=== PATIENT | female | born 1990 | race Hispanic/Latino ===

== ENCOUNTER → 2019-03-25 09:57 | Outpatient (CLI) | payer OTHER, MEDICAID, SELFPAY ==
--- NOTE | 2019-03-25 09:58 | DI.US.S_ITS ---
PROCEDURE: US OB >= 14 WEEKS FETUS INDICATIONS: ANATOMIC SURVEY OUTSIDE/PRIOR DATING DATA: Last menstrual period (LMP): Not available. LMP-based estimated date of delivery (MADHU): Not available. First dating scan (date and location): 03/17/19, by Dr. Arriaga Estimated date of delivery (MADHU) from first dating scan: Centered on 07/19/19. TECHNIQUE: Real-time scanning was performed of the fetus, with image documentation and biometric measurements. Endovaginal scanning: None needed for this study COMPARISON: [facility], , OB >= 14 WEEKS FETUS, 03/17/2019, 14:13. FINDINGS: General: A single living intrauterine gestation is present. Presentation: Transverse head to maternal left Placenta: Placental position is anterior, without previa. Amniotic fluid index: 6.0 cm, normal range is 5-24 cm. heart rate: 147 beats per minute. Maternal cervical canal: 4.7 cm long. Normal lower limit is 2.5 cm. biometrics: Biparietal diameter: 5.6 cm, 23 weeks 1 day Head circumference: 22.1 cm, 24 weeks 1 day Abdominal circumference: 20.0 cm, 24 weeks 4 days Femur length: 4.3 cm, 24 weeks 0 days Estimated gestational age from initial scan: 23 weeks 3 days. Composite gestational age from present scan: 24 weeks 0 days Estimated weight and percentile: Measurement variability for biometric dating: +/- 7 days from 14 weeks to 15 weeks 6 days gestation, +/- 10 days from 16 weeks to 21 weeks 6 days gestation, +/- 2 weeks from 22 weeks to 27 weeks 6 days gestation, +/- 3 weeks for 28 weeks gestation or later. weight reference: 4500 g or EFW >90/95% is considered macrosomia or large for gestational age. EFW <10% is small for gestational age. EFW 5% or less is considered intra-uterine growth restriction. Anatomic survey: Neuro: Ventricles are non-dilated at less than 10 mm. Cisterna magna is normal at 3-11 mm. Cerebellum is normal in size and morphology. Neck region is not fully visualized Nuchal skin fold: Not applicable Face: Nose and lips, facial profile are poorly visualized due to positioning. Spine: No evidence for spina bifida. Heart: 4-chambered heart is present, with poorly visualized ventricular outflow tracts due to positioning. Diaphragm: Diaphragm is intact. Stomach: Left-sided stomach is present. Kidneys: No hydronephrosis. Normal is less than 5 mm in 2nd trimester, less than 7 mm in 3rd trimester. Cord: 3-vessel cord has orthotopic insertion. Bladder: Normal in size. Extremities: All to upper extremities identified but the lower extremities could not be well-seen due to positioning IMPRESSION: Appropriate interval growth, no anomalies seen. A delivery date is centered on 07/19/19 based on the first OB ultrasound from Dr. Arriaga performed 03/17/19. Please note that the facial area and neck region are relatively poorly seen as are the diaphragm and cardiac outflow tracts and the lower extremities bilaterally due to positioning. A followup limited OB ultrasound in approximately 10 days could be utilized to attempt to complete anatomic survey. Dictated by: Remy Moreira M.D. on 03/25/2019 at 11:27 Approved by: Remy Moreira M.D. on 03/25/2019 at 11:43
== END ==
PROVIDERS: PCP Nurse Practitioner Gerontology
DX: Z34.82 Encounter for supervision of other normal pregnancy, second trimester (principal); Z3A.24 24 weeks gestation of pregnancy
CPT/HCPCS: 76811

== ENCOUNTER → 2019-04-10 10:06 | Outpatient (CLI) | payer OTHER, MEDICAID, SELFPAY ==
[2019-04-10 13:45] LABS: Urine N gonorrhoeae NOT DETECTED
[2019-04-10 14:55] LABS: Urine Chlamydia NOT DETECTED
== END ==
PROVIDERS: PCP Nurse Practitioner Gerontology
DX: Z34.82 Encounter for supervision of other normal pregnancy, second trimester (principal)
CPT/HCPCS: 87491; 87591

== ENCOUNTER → 2019-04-15 13:08 | Outpatient (CLI) | payer OTHER, MEDICAID, SELFPAY ==
--- NOTE | 2019-04-15 13:09 | DI.US.S_ITS ---
PROCEDURE: US OB FOLLOW UP INDICATIONS: LIMITED OB US TO FOLLOW UP ANATOMY SURVEY OUTSIDE/PRIOR DATING DATA: Last menstrual period (LMP): Unknown. LMP-based estimated date of delivery (MADHU): N./A.. First dating scan (date and location): 03/17/19. Estimated date of delivery (MADHU) from first dating scan: 07/19/19. TECHNIQUE: Real-time scanning was performed of the fetus, with image documentation. Endovaginal scanning: No COMPARISON: [facility], , OB >= 14 WEEKS FETUS, 04/10/2019, 10:21. FINDINGS: A single living intrauterine gestation is present. Presentation: Transverse with head to maternal left.. Placenta: Placental position is anterior, without previa. Amniotic fluid index: 19.2 cm, normal range is 5-24 cm. heart rate: 155 beats per minute. Maternal cervical canal: 5.4 cm long. Estimated gestational age from initial scan: 26 weeks 3 days Lower extremities, diaphragm and cardiac outflow tracts are normal. Posterior fossa and the neck again not well-seen as well as the facial profile and nasal bone.. IMPRESSION: 1. Single living IUP redemonstrated. 2. Normal appearance the lower extremities, diaphragm and cardiac outflow tracts. 3. Posterior fossa, neck as well as the facial profile and nasal bone again not well-visualized secondary to positioning and bodily habitus. Dictated by: Deion Sierra [facility] Interpreted: Krystian Wilde MD on 04/15/2019 at 15:15 Approved by: Krystian Wilde M.D. on 04/15/2019 at 17:21
== END ==
PROVIDERS: PCP Nurse Practitioner Gerontology
DX: Z04.89 Encounter for examination and observation for other specified reasons (principal); Z3A.26 26 weeks gestation of pregnancy
CPT/HCPCS: 76816

== ENCOUNTER → 2019-05-01 12:06 | Outpatient (CLI) | payer OTHER, MEDICAID, SELFPAY | PROVIDERS: PCP Nurse Practitioner Gerontology | DX: Z34.92 Encounter for supervision of normal pregnancy, unspecified, second trimester (principal) | CPT/HCPCS: 36415; 86850; 86900; 86901 ==

== ENCOUNTER 2019-07-07 02:53 | Inpatient (IN) | payer OTHER, MEDICAID, SELFPAY ==
[2019-07-07] VITALS (13 sets, daily range): BP systolic 80–124; BP diastolic 43–74; PULSE 71–80; RESP 11–18; TEMP 36.3–37.2; O2SAT 96–100
--- NOTE | 2019-07-07 | PATH_ITS ---
[facility] Accession Number: [id number] . 01 Material submitted: . PART A: fallopian tube - RIGHT FALLOPIAN TUBE SEGMENT PART B: fallopian tube - LEFT FALLOPIAN TUBE SEGMENT . 01 Clinical history: . EVALUATION OF LABOR . 02 Diagnosis: A. Right Fallopian Tube Segment: One complete circumferential segment of fallopian tube. No evidence of neoplasia. . B. Left Fallopian Tube Segment: One complete circumferential segment of fallopian tube. No evidence of neoplasia. I07/08/2019 . 02 Electronically signed: . Cate Strong MD, Pathologist NPI- [id number] . 01 Gross description: . Part A: RIGHT FALLOPIAN TUBE SEGMENT: Received in formalin is 1 fragment of arshad soft tissue measuring 0.8 x 0.6 x 0.5 cm. Tissue is inked. Specimen is sectioned and submitted in its entirety in 1 cassette. Part B: LEFT FALLOPIAN TUBE SEGMENT: Received in formalin is 1 fragment of arshad soft tissue measuring 0.7 x 0.5 x 0.4 cm. Tissue is inked,. Specimen is sectioned and submitted in its entirety in 1 cassette. /DM /[facility] . 02 Pathologist provided ICD-10: Z30.2 . 02 CPT . 441653, [id number] Performed at: 01 [facility] [address] [facility] [place], [place], [place] [id number] MD Cali Camejo MD Phone: [phone] Performed at: 02 [facility] [address] [place], [place] [id number] MD Cate Strong MD Phone: [phone]
[2019-07-07] MEDS: LACTATED RINGERS 1,000 ML 999 ML IV (03:30)
--- NOTE | 2019-07-07 03:38 | PM.OBHP.1 ---
OB HPI Date/Time Date of admission: 07/07/19 Date Patient Seen: 07/07/19 Time Patient Seen: 03:39 History of Present Condition Chief complaint: evaluation of labor : 2 Para: 1 Estimated Date of Delivery: 07/16/19 Estimated Gestational Age (weeks): 39 Narrative: Marisabel Edwards is a 29 year old female with a history of a prior section. She presents in active labor with rupture of membranes. Indications Operative indications ( section): previous uterine surgery History of Present care: good care, number of visits (13) and pounds weight gain (9 lb) Dating criteria: LMP confirmed by 1st trimester US Ultrasounds: normal 1st trimester US and normal mid trimester US Obstetrical complications: gestational diabetes Medical complications: none Narrative: Patient with uneventful except for gestational diabetes diet controlled and with metformin. Preadmission Labs Blood type: A (+) positive -: Antibody screen: negative, Cystic fibrosis screen: unknown, GBS status: negative, HBsAG: negative, HIV: negative, HSV 1: negative, HSV 2: negative and RPR/VDLR: negative -: Chlamydia screen: detected (Negative) and Gonorrhea screen: detected (Negative) -: Rubella: not immune and Varicella: unknown HCT: 36.9 HCAB: negative PAP: Normal 1 hr GTT: 186 3 hr GTT: 1 hr (186) and 2 hr (160) Fasting blood glucose: 97 Evaluation Evaluation Baseline heart rate: 140 Variability: Moderate (11-25) monitor accelerations: Present monitor decelerations: Absent Contraction Frequency (minutes): 3 Category of Tracing: I Cervical dilation (cm): 3 Cervical effacement (%): 90 station: -3 Non-invasive Membranes Rupture Test: positive [facility] Medical History Hypertension (Chronic ~2011) Surgical History History of epidural anesthesia (Resolved) History of surgery (Resolved ~09/12/17) Family History (Updated 02/12/19 @ 20:32 by Rachel Falcon) Mother Diabetes mellitus Brother Hypertension Grandfather Diabetes mellitus Social History Smoking Status: Never smoker Family History Mother Diabetes mellitus Brother Hypertension Grandfather Diabetes mellitus Social History Smoking Status: Never smoker Meds Home Medications Medication Instructions Recorded Confirmed Type 1 tab PO DAILY 02/11/19 07/07/19 History vitamin,calcium,sauoooji-qmfp-utztd acid tablet metformin 500 mg tablet 500 mg PO BID #120 tab 05/29/19 07/07/19 Rx Allergies Allergy/AdvReac Type Severity Reaction Status Date / Time No Known Drug Allergies Allergy Verified 07/07/19 03:17 Review of Systems Review of Systems All systems reviewed & are unremarkable except as noted in HPI and below Exam Vital Signs (past 8 hours): - 07/07/19 03:16 Blood Pressure 124/74 Const General: cooperative and healthy appearing [facility] Head: normal to inspection Ears: hearing grossly normal bilaterally Nose: external nose normal Face and sinus: normal facial exam Mouth: oral mucosae normal, lip normal, tongue normal and moist mucous membranes Teeth and gingiva: dentition normal Throat: posterior oropharynx normal Eyes General: appearance normal, both eyes and all related structures Neck Neck: normal visual inspection and full ROM Chest Chest: normal inspection of the chest and normal palpation of entire chest wall Breast inspection: normal inspection of the breasts and normal inspection of the axillae Breast Palpation: normal palpation of the breasts and normal palpation of the axillae Resp Effort & Inspection: normal respiratory effort Auscultation: clear to auscultation bilaterally Cardio Palpation: normal PMI Rate: regular rate Rhythm: regular rhythm Heart Sounds: S1 normal and S2 normal GI Inspection: normal to inspection Palpation: soft and no hepatosplenomegaly Percussion: normal to percussion Auscultation: normal bowel sounds OB/External & Speculum: external exam normal Manual OB Exam: dilated 3, effaced fully and station high Uterus Location (Fundal Height): 40 Presentation: vertex Estimated Weight (lbs): 8 Amniotic Fluid: clear Back/Spine/Pelvis Thoracic/Lumbar Spine: thoracic and lumbar spine normal to inspection Skin General: no rashes or lesions noted Neuro General: alert, oriented x3, tone normal and moves all extremities Cognition: normal cognition Speech: speech normal Gait: normal gait Motor: muscle tone normal throughout Sensory Exam: no sensory deficits noted Extrem General: normal to inspection and normal exam except as noted Psych Appearance: grossly normal and well kempt Mental Status: mental status grossly normal Speech and Movement: speech and movement normal Objective Labs Result Diagrams: 07/07/19 03:27 Assessment and Plan Assessment and Plan Assessment and Plan narrative: Term intrauterine History of prior section Active labor with rupture membranes Planned repeat section
[2019-07-07 03:41] LABS: Add Manual Diff / Slide Review NO; Basophils Absolute Auto 100 /uL (0-100); Basophils Percent Auto 0.8 % (0-2); Eosinophils Absolute Auto 0 /uL (0-450); Eosinophils Percent Auto 0.4 % (2-4); Hematocrit 36.4 % (36-46); Hemoglobin 12.1 g/dL (12.0-16.0); Lymphocytes Absolute Auto 2800 /uL (1100-4500); Lymphocytes Percent Auto 22.9 % (25-40); Mean Corpuscular HGB Conc 33.1 % (30-36); Mean Corpuscular Hemoglobin 25.8 PG (26-34); Monocytes Absolute Auto 700 /uL (0-900); Monocytes Percent Auto 6.1 % (3-14); Neutrophils Absolute Auto 8600 /uL (1500-7000); Neutrophils Percent Auto 69.8 % (50-75); Platelet Count 227 X10^3/uL (150-400); Red Blood Cell Count 4.68 X10^6/uL (4.0-5.2); Red Cell Distribution Width 15.6 % (11.6-14.8); White Blood Cell Count 12.3 X10^3/uL (4.5-11.0)
--- NOTE | 2019-07-07 03:48 | P.HPOB_ITS ---
OB HPI Date/Time Date of admission: 07/07/19 Date Patient Seen: 07/07/19 Time Patient Seen: 03:39 History of Present Condition Chief complaint: evaluation of labor : 2 Para: 1 Estimated Date of Delivery: 07/16/19 Estimated Gestational Age (weeks): 39 Narrative: Marisabel Edwards is a 29 year old female with a history of a prior section. She presents in active labor with rupture of membranes. Indications Operative indications ( section): previous uterine surgery History of Present care: good care, number of visits (13) and pounds weight gain (9 lb) Dating criteria: LMP confirmed by 1st trimester US Ultrasounds: normal 1st trimester US and normal mid trimester US Obstetrical complications: gestational diabetes Medical complications: none Narrative: Patient with uneventful except for gestational diabetes diet controlled and with metformin. Preadmission Labs Blood type: A (+) positive -: Antibody screen: negative, Cystic fibrosis screen: unknown, GBS status: negative, HBsAG: negative, HIV: negative, HSV 1: negative, HSV 2: negative and RPR/VDLR: negative -: Chlamydia screen: detected (Negative) and Gonorrhea screen: detected (Negative) -: Rubella: not immune and Varicella: unknown HCT: 36.9 HCAB: negative PAP: Normal 1 hr GTT: 186 3 hr GTT: 1 hr (186) and 2 hr (160) Fasting blood glucose: 97 Evaluation Evaluation Baseline heart rate: 140 Variability: Moderate (11-25) monitor accelerations: Present monitor decelerations: Absent Contraction Frequency (minutes): 3 Category of Tracing: I Cervical dilation (cm): 3 Cervical effacement (%): 90 station: -3 Non-invasive Membranes Rupture Test: positive [facility] Medical History Hypertension (Chronic ~2011) Surgical History History of epidural anesthesia (Resolved) History of surgery (Resolved ~09/12/17) Family History (Updated 02/12/19 @ 20:32 by Rachel Falcon) Mother Diabetes mellitus Brother Hypertension Grandfather Diabetes mellitus Social History Smoking Status: Never smoker Family History Mother Diabetes mellitus Brother Hypertension Grandfather Diabetes mellitus Social History Smoking Status: Never smoker Meds Home Medications Medication Instructions Recorded Confirmed Type 1 tab PO DAILY 02/11/19 07/07/19 History vitamin,calcium,xgvtcycs-ldix-zhprj acid tablet metformin 500 mg tablet 500 mg PO BID #120 tab 05/29/19 07/07/19 Rx Allergies Allergy/AdvReac Type Severity Reaction Status Date / Time No Known Drug Allergies Allergy Verified 07/07/19 03:17 Review of Systems Review of Systems All systems reviewed & are unremarkable except as noted in HPI and below Exam Vital Signs (past 8 hours): - 07/07/19 03:16 Blood Pressure 124/74 Const General: cooperative and healthy appearing [facility] Head: normal to inspection Ears: hearing grossly normal bilaterally Nose: external nose normal Face and sinus: normal facial exam Mouth: oral mucosae normal, lip normal, tongue normal and moist mucous membranes Teeth and gingiva: dentition normal Throat: posterior oropharynx normal Eyes General: appearance normal, both eyes and all related structures Neck Neck: normal visual inspection and full ROM Chest Chest: normal inspection of the chest and normal palpation of entire chest wall Breast inspection: normal inspection of the breasts and normal inspection of the axillae Breast Palpation: normal palpation of the breasts and normal palpation of the axillae Resp Effort & Inspection: normal respiratory effort Auscultation: clear to auscultation bilaterally Cardio Palpation: normal PMI Rate: regular rate Rhythm: regular rhythm Heart Sounds: S1 normal and S2 normal GI Inspection: normal to inspection Palpation: soft and no hepatosplenomegaly Percussion: normal to percussion Auscultation: normal bowel sounds OB/External & Speculum: external exam normal Manual OB Exam: dilated 3, effaced fully and station high Uterus Location (Fundal Height): 40 Presentation: vertex Estimated Weight (lbs): 8 Amniotic Fluid: clear Back/Spine/Pelvis Thoracic/Lumbar Spine: thoracic and lumbar spine normal to inspection Skin General: no rashes or lesions noted Neuro General: alert, oriented x3, tone normal and moves all extremities Cognition: normal cognition Speech: speech normal Gait: normal gait Motor: muscle tone normal throughout Sensory Exam: no sensory deficits noted Extrem General: normal to inspection and normal exam except as noted Psych Appearance: grossly normal and well kempt Mental Status: mental status grossly normal Speech and Movement: speech and movement normal Objective Labs Result Diagrams: 07/07/19 03:27 Assessment and Plan Assessment and Plan Assessment and Plan narrative: Term intrauterine History of prior section Active labor with rupture membranes Planned repeat section
[2019-07-07] MEDS: CEFOTETAN 2 GM/50 ML PIGGYBACK IV (04:11)
--- NOTE | 2019-07-07 04:29 | SUR.OPER ---
Supine on Padded OR bed, head on pillow, safety belt at thigh, arms secured on padded arm boards at <90 degrees abduction. Bump under right buttock. Legs uncrossed with pillow under knees, gel pad to heels, tape over blanket to lower legs.
--- NOTE | 2019-07-07 05:01 | SUR.OPER ---
FHT preoperative 132. Live male at 0431. APGARS 9/9
--- NOTE | 2019-07-07 05:24 | P.OP_ITS ---
Operative Date/Time/Diagnoses Date of procedure: 07/07/19 Time of procedure: 05:19 Pre-op diagnosis: Term intrauterine History of prior section Multiparity desires sterilization Active labor Post-op diagnosis: same Procedure: Procedures Operation Date: 07/07/19 03:55 Actual Procedures Side Surgeon p Section, bilateral tubal ligation Jama Arriaga MD Indications: Term intrauterine History prior section Multiparity desires sterilization Active labor with rupture membranes Surgeon: Jama Arriaga Anesthesia Type: Spinal Operative Notes Findings: Normal uterus tubes and ovaries Live-born male Closure Type: primary Specimen(s): portion of left tube and portion of right tube Applied: catheter Estimated blood loss (mL): 500 Blood products transfused: none Procedure in detail: The patient was placed supine upon the operating table and anesthetized. She was then draped and prepared in usual fashion. The old incision was marked with a pen. A transverse incision was made through the skin and the subcutaneous tissue incised to the fascia. The fascia was incised with a sharp knife transversely in each direction. The median raphe was incised in the midline. This was then widened by blunt finger dissection. Peritoneum was picked up and incised. This was widened with blunt finger dissection. The peritoneum over the lower uterine segments picked up and incised the bladder taken down. The lower in segment was very thin. Transverse incision was made. This was widened with blunt finger dissection. A live-born male infant with scores of eight at 1 minute nine at 5 minute was then delivered without difficulty. The respiratory therapist and nurse pronounced the infant normal in good condition. Cord blood was obtained. Cord had three vessels. Placenta was removed without difficulty. All membranes were massaged from the endometrial cavity. Lateral edges of the uterine incision were grasped with [place] clamps. The incision was closed in an imbricating fashion using two layer technique with 1. Chromic suture. Bleeding points were seen. Visceral peritoneum was closed with two interrupted two 0 chromic sutures. Attention was turned to the fallopian tubes. Left tube was grasped with a [place] clamp at its isthmic ampullary junction. It was doubly tied with number 0 plain catgut suture. The intervening portion of tube was excised. Similar procedure was performed on the right-hand side. No bleeding points were seen. The ovaries appeared to be normal. The parietal perineum was then closed with running two 0 chromic suture. Area was copiously irrigated. The median raphe was reapproximated with interrupted 1. Vicryl sutures. Fascia was closed with two continuous 1. Vicryl sutures. Area was copiously irrigated once again. The subcutaneous tissue was closed in two layers. 1st layer was a deep interrupted three 0 Vicryl suture. 2nd layer was a running horizontal mattress three 0 Vicryl suture. Skin was further approximated Steri-Strips. An Aquacel dressing was used. At the end of the procedure there was no bleeding. The urine was clear. The patient was taken to the recovery room in satisfactory conditions. Complications: none Post-operative Condition: stable Disposition: PACU Plan for aftercare: To OB
--- NOTE | 2019-07-07 05:48 | SUR.PHASEI ---
Has been calm, relaxed throughout PACU stay, denies pain/nausea. Tolerating sips of water, mostly dozing, arouses easily to voice. Resp unlabored, can feel pressure w/fundal massage but no pain. Skin warm and dry.
[2019-07-07] MEDS: LACTATED RINGERS 1,000 ML 42 ML IV (05:56)
--- NOTE | 2019-07-07 05:56 | SUR.PHASEI ---
1000 ml LR from the OR infused. Report called to center, they desire patient to remain in PACU longer for BP monitoring.
--- NOTE | 2019-07-07 06:32 | SUR.PHASEI ---
0617 to Center. Patient stable, no pain except with fundus massage, no nausea, skin warm and dry, resp unlabored, fundus massage to firm with minimal flow. Spinal resolving with abnormal sensation in LE, no motion in LE. Report updated on arrival. Patient became nauseated upon arrival, see notes for emesis. Family at bedside. Bed down and locked, call light within reach. SCDs on. IV on pump.
[2019-07-07] MEDS: METOCLOPRAMIDE 10 MG/2 ML INJ IV (06:57)
[2019-07-07] MEDS: DOCUSATE 250 MG CAPSULE PO (08:46)
[2019-07-07] MEDS: ONDANSETRON 4 MG/2 ML INJ IV (08:46)
[2019-07-07] MEDS: PRENATAL VIT,CALC/IRON/FOLIC 1 TABLET 1 TAB PO (08:46)
[2019-07-07] MEDS: KETOROLAC 30 MG/ML VIAL IV ×2 (11:02→17:55)
[2019-07-07] MEDS: LACTATED RINGERS 1,000 ML 100 ML IV (14:49)
[2019-07-07] MEDS: LANOLIN OINT 7 GM 1 APPLIC TOP (23:40)
[2019-07-08] MEDS: KETOROLAC 30 MG/ML VIAL IV (00:02)
[2019-07-08 05:25] LABS: Hematocrit 31.5 % (36-46); Hemoglobin 10.6 g/dL (12.0-16.0)
[2019-07-08] MEDS: IBUPROFEN 600 MG TABLET PO ×4 (07:44→20:11)
--- NOTE | 2019-07-08 07:50 | PM.OBPN.1 ---
Subjective - OB Patient comments: no complaints baby status: doing well Hosmer feeding status: exclusively breast feeding Narrative: 1st postoperative day section and tubal ligation. Doing well having no problems Date Patient Seen: 07/08/19 Time Patient Seen: 07:50 Exam Vital Signs (past 8 hours): Oxygen Delivery Method Room Air Narrative Exam Narrative: Fundus U minus two Incision covered by Aquacel dressing Lochia scant Objective Labs Result Diagrams: 07/08/19 05:15 Labs: Laboratory Results - last 24 hr 07/08/19 05:15 Hgb 10.6 L Hct 31.5 L Assessment & Plan Plan day: 1 plan OB: routine postop care Comments: Doing well no problems Time Spent With Patient Total time spent is greater than 50% in coordination of care (as documented) at patient's floor/unit and/or counseling patient: less than 15 minutes
[2019-07-08] MEDS: HYDROCODONE/ACET 5/325 TABLET 1 TAB PO ×2 (08:28→20:11)
[2019-07-08] MEDS: DOCUSATE 250 MG CAPSULE PO (08:28)
[2019-07-08] MEDS: PRENATAL VIT,CALC/IRON/FOLIC 1 TABLET 1 TAB PO (08:28)
[2019-07-08 20:51] VITALS: BP 112/66; PULSE 82; RESP 16; TEMP 36.4
[2019-07-09] MEDS: IBUPROFEN 600 MG TABLET PO ×2 (02:15→09:29)
[2019-07-09] MEDS: HYDROCODONE/ACET 5/325 TABLET 1 TAB PO ×2 (02:15→09:29)
--- NOTE | 2019-07-09 07:51 | PM.OBDS.1 ---
Discharge Providers Date of admission: 07/07/19 02:53 Discharge Date: 07/09/19 Primary care physician: HAJA Giraldo Consults: 07/07/19 06:50 Consult to Professor Of Religious Studies Routine Comment: Discharge provider: Jama Arriaga MD Summary Date Patient Seen: 07/09/19 Time Patient Seen: 07:51 Procedures: Spinal anesthesia Repeat low segment section current time Bilateral tubal ligation [place] type Hospital Course: The patient is a 29-year-old two para two now who presented in labor with a history of a prior section and desire for repeat section. The patient also desired tubal sterilization. Patient was taken to surgery and underwent a low segment section and bilateral tubal ligation. Post delivery she did well. She remained afebrile stable vital signs and was progressively elevated and ambulated Peripartum Data Delivery Method: Section complications: none Status at Discharge Cognitive/behavioral status at discharge: oriented Functional status at discharge: independent ambulation Overall status at discharge: patient is progressing back to baseline Time Spent with Patient Total time spent providing and/or coordinating discharge services: Time spent discussing smoking cessation with patient: 3 to 10 minutes Objective Labs Result Diagrams: 07/08/19 05:15 Exam Vital Signs (past 8 hours): Oxygen Delivery Method Room Air Discharge Plan Discharge Plan Patient Disposition: Home Discharge Med Rec/Prescriptions Prescriptions: New ibuprofen 600 mg Tablet 600 mg PO Q6HR PRN (Reason: As Needed For Fever/Mild Pain) Qty: 20 RF: 0 docusate sodium 250 mg Capsule 250 mg PO DAILY Qty: 10 RF: 0 Cvy-F-Gtklxu Cream 1 applic topical PRN PRN (Reason: ) Qty: 1 RF: 0 oxycodone-acetaminophen 5-325 mg Tablet 1 tab PO Q4HR PRN (Reason: Pain, Moderate (4-6)) Qty: 10 RF: 0 Prenatabs Rx 29 mg iron- 1 mg Tablet 1 tab PO DAILY Qty: 60 RF: 0 Discontinued metformin 500 mg tablet 500 mg PO BID Qty: 120 RF: 2 prenat.vits,yee,atn-ehbn-kmssy tablet 1 tab PO DAILY RF: 0 Follow up/Referrals: Cate Farrell ARNP [Primary Care Provider] - Jama Arriaga MD [Physician] - 07/16/19 Provider Discharge Instructions Diet: Diet as Tolerated Activity: Up ad eugenia Restricts Skin/Wound/Dressing Care Report to your healthcare provider any signs of infection, such as:: chills, fever, increased pain, unusual drainage and unusual redness Dressing: Aquacel Removed one week in office Discharge Data Primary Care Provider: Cate Farrell Attending Provider: Jama Arriaga Admit Date/Time: 07/07/19 02:53
--- NOTE | 2019-07-09 07:54 | P.DS_ITS ---
Discharge Providers Date of admission: 07/07/19 02:53 Discharge Date: 07/09/19 Primary care physician: HAJA Giraldo Consults: 07/07/19 06:50 Consult to [employer]ologist Routine Comment: Discharge provider: Jama Arriaga MD Summary Date Patient Seen: 07/09/19 Time Patient Seen: 07:51 Procedures: Spinal anesthesia Repeat low segment section current time Bilateral tubal ligation [place] type Hospital Course: The patient is a 29-year-old two para two now who presented in labor with a history of a prior section and desire for repeat section. The patient also desired tubal sterilization. Patient was taken to surgery and underwent a low segment section and bilateral tubal ligation. Post delivery she did well. She remained afebrile stable vital signs and was progressively elevated and ambulated Peripartum Data Delivery Method: Section complications: none Status at Discharge Cognitive/behavioral status at discharge: oriented Functional status at discharge: independent ambulation Overall status at discharge: patient is progressing back to baseline Time Spent with Patient Total time spent providing and/or coordinating discharge services: Time spent discussing smoking cessation with patient: 3 to 10 minutes Objective Labs Result Diagrams: 07/08/19 05:15 Exam Vital Signs (past 8 hours): Oxygen Delivery Method Room Air Discharge Plan Discharge Plan Patient Disposition: Home Discharge Med Rec/Prescriptions Prescriptions: New ibuprofen 600 mg Tablet 600 mg PO Q6HR PRN (Reason: As Needed For Fever/Mild Pain) Qty: 20 RF: 0 docusate sodium 250 mg Capsule 250 mg PO DAILY Qty: 10 RF: 0 Lct-S-Pyqvwt Cream 1 applic topical PRN PRN (Reason: ) Qty: 1 RF: 0 oxycodone-acetaminophen 5-325 mg Tablet 1 tab PO Q4HR PRN (Reason: Pain, Moderate (4-6)) Qty: 10 RF: 0 Prenatabs Rx 29 mg iron- 1 mg Tablet 1 tab PO DAILY Qty: 60 RF: 0 Discontinued metformin 500 mg tablet 500 mg PO BID Qty: 120 RF: 2 prenat.vits,yee,bpx-frkf-izbjo tablet 1 tab PO DAILY RF: 0 Follow up/Referrals: Cate Farrell ARNP [Primary Care Provider] - Jama Arriaga MD [Physician] - 07/16/19 Provider Discharge Instructions Diet: Diet as Tolerated Activity: Up ad eugenia Restricts Skin/Wound/Dressing Care Report to your healthcare provider any signs of infection, such as:: chills, fever, increased pain, unusual drainage and unusual redness Dressing: Aquacel Removed one week in office Discharge Data Primary Care Provider: Cate Farrell Attending Provider: Jama Arriaga Admit Date/Time: 07/07/19 02:53
[2019-07-09] MEDS: DOCUSATE 250 MG CAPSULE PO (09:29)
[2019-07-09] MEDS: PRENATAL VIT,CALC/IRON/FOLIC 1 TABLET 1 TAB PO (09:29)
[2019-07-09] MEDS: MEASLES,MUMPS,RUBELLA VACC/PF 0.5 ML VIAL SUBCUT (10:35)
== END 2019-07-09 10:40 | disposition home or self-care (01) | DRG 540 ==
PROVIDERS: PCP Nurse Practitioner Gerontology
PROC: 10D00Z1 Extraction of Products of Conception, Low, Open Approach (ICD-10-PCS; CPT 59514; principal; 2019-07-07 03:55)
DX: O75.82 Onset (spontaneous) of labor after 37 completed weeks of gestation but before 39 completed weeks gestation, with delivery by (planned) cesarean section (principal); O34.219 Maternal care for unspecified type scar from previous cesarean delivery; O24.425 Gestational diabetes mellitus in childbirth, controlled by oral hypoglycemic drugs; Z3A.39 39 weeks gestation of pregnancy; Z37.0 Single live birth; Z30.2 Encounter for sterilization
CPT/HCPCS: 36415; 58611; 59050; 59514; 84112; 85014; 85018; 85025; 86850; 86900; 86901; G0379; J1885; J2274; J2405; J2590; J2765